=== PATIENT | female | born 1945 | race Caucasian/White ===

== ENCOUNTER → 2016-12-06 09:25 | Outpatient (CLI) | payer MEDICARE ==
[2010-02-23 08:29] VITALS: BMI 26.1
--- NOTE | ~2016-12-06 | EEG ---
PATIENT:INNA JOHANSEN DATE OF SERVICE: 12/06/16 MEDICAL RECORD: [id number] DATE OF : 41 LOCATION: [facility] ADMISSION DATE: 12/06/16 REFERRING PHYSICIAN: INTERPRETING PHYSICIAN: MARGO GUNDERSON MD DATE OF SERVICE: 12/07/2016 Referred as an outpatient by Dr. Fitzgerald. ELECTROENCEPHALOGRAM NUMBER: [id number] DATE OF EXAMINATION: 12/06/2016 at 10:45 a.m. TECHNICAL DATA: This electroencephalographic recording consists of approximately 20 minutes of data collection utilizing the international 10/20 system of electrode placement and both referential and non-referential montages. Sixteen channels of electrocerebral recording are accompanied by a 17th channel dedicated to the electrocardiographic rhythm and 2 channels of electromyographic recording. Recording is performed in the awake and drowsy states utilizing activation by hyperventilation and photic stimulation. ELECTROENCEPHALOGRAPHIC DATA: The awake state comprises approximately 70% of the recorded electrocerebral activity. Electromyographic artifact is prominent and rapid eye movements are seen. The posterior dominant background consists of a symmetric, semi-rhythmic, waxing and waning, 7-8 Hz alpha activity, which is suppressed by eye opening. The drowsy state comprises the remaining portion of the recorded electrocerebral activity. Electromyographic artifact is diminished and rapid eye movements are not seen. The posterior dominant background is relatively suppressed. No abnormal or focal slowing is identified. No epileptiform discharges are seen. Hyperventilation and photic stimulation induced no abnormal change in the recorded electrocerebral activity. INTERPRETATION: Normal (awake and drowsy). This is a normal electroencephalographic recording. TRANSINT:[id number] Voice Confirmation ID: [id number] DOCUMENT ID: [id number] MARGO GUNDERSON MD CC: [id number] DICTATION DATE: 12/07/16 0750 CUSTOMER CONTACT REPRESENTATIVE: 12/08/16 0011 DEP CLI 12/06/16 [id number] [place] [address]
== END | disposition home or self-care (01) ==
LOC: D.CN 12-05 10:00
DX: G72.3 Periodic paralysis (principal)

== ENCOUNTER → 2016-12-10 08:59 | Outpatient (CLI) | payer MEDICARE ==
[2010-02-23 08:29] VITALS: BMI 26.1
== END | disposition home or self-care (01) ==
LOC: D.MRI 08:59
DX: G72.3 Periodic paralysis (principal)

== ENCOUNTER 2017-02-21 10:28 | Outpatient (CLI) | payer MEDICARE ==
[~2017-02-21] VITALS: Ht 162.6 cm; Wt 74.5 kg
--- NOTE | ~2017-02-21 | OP ---
PATIENT NAME: INNA JOHANSEN MEDICAL RECORD: [id number] :41 LOCATION:[facility] ADMISSION DATE: SURGEON: KD CANADA MD OPERATION DATE: 02/21/17 PROCEDURES: 1. Left heart catheterization. 2. Selective coronary angiography. PROCEDURE IN DETAIL: After informed consent was obtained and after detailed explanation of risks, benefits, as well as alternative therapies, the patient elected to proceed with angiogram. The right radial area was prepped and draped in a normal sterile fashion. The right radial artery was cannulated via modified Seldinger technique with placement o f 5-Croatian sheath, 5-4 left and right Cesar, 5-4 pigtail catheter. All catheters exchanged through this sheath. The procedure was well-tolerated, and the patient's sheath was removed and TR band was placed. FINDINGS: Left ventriculography was performed in standard 30 degree POLLOCK view, normal wall motion, normal systolic function. CORONARY ANATOMY: 1. LEFT MAIN: The left main was free of disease. 2. LEFT ANTERIOR DESCENDING: The left anterior descending is free of disease as is the diagonal system. 3. CIRCUMFLEX: The circumflex is free of disease as is the marginal system. 4. RIGHT CORONARY ARTERY: This is a dominant right system and is free of disease. IMPRESSION: Normal left ventricular systolic function. Normal coronary anatomy. 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
--- NOTE | ~2017-02-21 | HEMODYNAMI ---
PATIENT:INNA JOHANSEN MEDICAL RECORD: [id number] : 41 LOCATION:[facility] ADMISSION DATE: 02/21/17 Generatedon:02/21/201714:42 Patient name: INNA JOHANSEN Patient #: [id number] SSN: DO B: 1945 Date of study: 02/21/2017 Page: Of Hemodynamic Procedure Report Patient Data Patient Demographics Procedure consent was obtained First Name: INNA Gender: Female Last Name: HAILY : 1945 [facility] Initial: JOANA Age: 71 year(s) Patient #: [id number] Race: Unknown Additional ID: [id number] Contact details Address: [address] [place] [address] State: [place] City: [place] Zip code: [address] Past Medical History Allergies Allergen Reaction Date Comments Reported Penicillins 02/21/2017 Other allergy 02/21/2017 NSAIDS, Citalopram Admission Admission Data Admission Date: 02/21/2017 Admission Time: 10:28 Height (in.): 64 BSA: 1.8 (m2) Height (cm.): 162.56 BMI: 28.15 (kg/m2) Weight (lbs.): 164 Weight (kg.): 74.39 Lab Results Lab Result Date: 02/21/2017 Lab Result Time: 0:00 Biochemistry Name Units Result Min Max Creatinine mg/dl 1.1 --(--*-)-- 0.6 1.3 CBC Name Units Result Min Max Hemoglobin g/dl 14.4 --(*---)-- 13.5 17.5 Procedure Procedure Types Cath Procedure Diagnostic Procedure C [facility] w/Coronaries Miscellaneous Procedures Moderate Sedation up to 15 minutes Procedure Description Procedure Date Procedure Date: 02/21/2017 Procedure Start Time: 14:29 Procedure End Time: 14:42 Procedure Staff Name Function Niall Rodgers MD Performing Physician Nuria Alberts RT Scrub Trisha Short RN Nurse Silverio Menchaca RN Nurse Sabine Bullard RT Monitor Jarrell Willis RN Grazing Aide Procedure Data Cath Procedure Fluoroscopy Diagnostic fluoroscopy Total fluoroscopy Time: 2.7 time: 2.7 min min Diagnostic fluoroscopy Total fluoroscopy dose: 338 dose: 338 mGy mGy Contrast Material Contrast Material Type Amount (ml) Isovue 300 36 Entry Location Entry Primary Successful Side Size Upsize Upsize Entry Closure Farias ccessful Closure Location (Fr) 1 (Fr) 2 (Fr) Remarks Device Remarks Radial Right 6 Fr Mechanical artery Short Compression Estimated blood loss: 5 ml Diagnostic catheters Device Type Used For End Catheter Placement Diagnostic Terumo 5Fr LV Angiography Palisade 110cm catheter Diagnostic Terumo 5Fr Left Coronary Palisade 110cm catheter Angiography Diagnostic Terumo 5Fr Right Coronary Palisade 110cm catheter Angiography Procedure Complications No complications Procedure Medications Medication Administration Route Dosage Lidocaine 2% added to field 20 Heparin Flush Bag added to field 2 bags (1000units/500ml NS) Oxygen NC 3 l/min 0.9% NaCl I.V. 100 ml/hr Radial Cocktail added to field 1 syringe (Verapomil 2mg/Nitro 400mcg/Heparin 1500units) Versed I.V. 1 mg Fentanyl I.V. 50 mcg Versed I.V. 0.5 mg Fentanyl I.V. 25 mcg Radial Cocktail I.A. 1 syringe (Verapomil 2mg/Nitro 400mcg/Heparin 1500units) Hemodynamics Rest BSA: 1.8 (m2) HGB: 14.4 (g/dl) O2 Consumption: Estimated: 155.7 (ml/min) O2 Cons umption indexed: Estimated:86.5 (ml/min/m) Heart Rate: 57 (bpm) Pressure Samples Time Site Value (mmHg) Purpose Heart Use Rate(bpm) 14:34 LV 109/13,12 EDP 71 14:34 AO 124/75(99) Pullback 67 14:34 LV 106/11,14 Pullback 67 Gradients Valve Time Site 1 Site 2 Mean SEP/DFP Peak To Heart Use (mmHg) (sec/min) Peak Rate (mmHg) (bpm) Aortic 14:34 LV AO 0 67 106/11,14 124/75(99) Calculations Valve P-P Mean Valve Index Valve Source Name Gradient Area Flow (cm2) Aortic 0 0 Snapshots Pre Cath Intra NCS Post Cath Vital Signs Time Heart Resp SPO2 NIBP (mmHg) Rhythm Pain Sedation Rate (ipm) (%) Status Level (bpm) 14:16:59 56 18 98 162/80(127) NSR 0 (11) 10(A) , No pain 14:21:19 57 17 99 162/85(106) NSR 0 (11) 10(A) , No pain 14:25:39 61 17 93 130/75(101) NSR 0 (11) 10(A) , No pain 14:29:49 62 17 98 136/77(119) NSR 0 (11) 9(A) , No pain 14:33:53 78 16 96 79/52(65) NSR 0 (11) 9(A) , No pain 14:38:48 65 12 94 110/67(90) NSR 0 (11) 10(A) , No pain Medications Time Medication Route Dose Verified Delivered Reason Notes Ef fectiveness by by 14:07:27 Lidocaine 2% added 20ml Trisha Trisha used for to vial Deja Deja procedure field RN RN 14:07:39 Heparin Flush added 2 bags Trisha Trisha used for Bag to Deja Deja procedure (1000units/500ml field RN RN NS) 14:17:44 Oxygen NC 3 l/min Trisha Trisha used for Deja Deja party plan demonstrator RN 14:17:57 0.9% NaCl I.V. 100 Trisha Trisha used for ml/hr Deja Deja party plan demonstrator RN 14:18:06 Radial Cocktail added 1 Trisha Trisha used for (Verapomil to syringe Deja Deja procedure 2mg/Nitro field RN RN 400mcg/Heparin 1500units) 14:24:24 Versed I.V. 1 mg Trisha Trisha for Deja Deja sedation RN RN 14:24:32 Fentanyl I.V. 50 mcg Trisha Trisha for Deja Deja sedation RN RN 14:29:21 Versed I.V. 0.5 mg Trisha Trisha for Deja Deja sedation RN RN 14:29:27 Fentanyl I.V. 25 mcg Trisha Trisha for Deja Deja sedation RN RN 14:29:35 Radial Cocktail I.A. 1 Niall Tierney used for (Verapomil syringe [facility] procedure 2mg/Nitro MD PEDERSEN 400mcg/Heparin 1500units) Procedure Log Time Note 14:02:31 Jarrell Willis RN sent for patient. Start room use. 14:02:32 Time tracking: Regular hours 14:02:35 Plan of Care:Hemodynamics will remain stable., Cardiac rhythm will remain stable., Comfort level will be maintained., Respiratory function will remain adequate., Patient/ family verbilizes understanding of procedure., Procedure tolerated without complication., Recovers from procedure without complications.. 14:04:21 Lab Result : Creatinine 1.1 mg/dl 14:04:21 Lab Result : Hemoglobin 14.4 g/dl 14:04:38 Patient Height : 162.56 cm 14:04:40 Patient Weight : 74.39 kg 14:07:27 Lidocaine 2% 20ml vial added to field was administered by Trisha Short RN; used for procedure; 14:07:39 Heparin Flush Bag (1000units/500ml NS) 2 bags added to field was administered by Trisha Short RN; used for procedure; 14:08:54 Patient received from Pre/Post Procedure Room to [facility] 2 Alert and oriented. Tansferred to table in Supine position. 14:08:55 Warm blankets applied, and dayanna hugger turned on for patient comfort. 14:08:55 Correct patient and procedure confirmed by team. 14:08:56 Signed procedure consent form obtained from patient. 14:08:57 ECG and BP/O2 sat monitors applied to patient. 14:08:58 Full Disclosure recording started 14:15:49 Vital chart was started 14:17:44 Oxygen 3 l/min NC was administered by Trisha Short RN; used for procedure; 14:17:57 0.9% NaCl 100 ml/hr I.V. was administered by Trisha Short RN; used for procedure; 14:18:06 Radial Cocktail (Verapomil 2mg/Nitro 400mcg/Heparin 1500units) 1 syringe added to field was administered by Trisha Short RN; used for procedure; 14:19:48 Baseline sample Acquired. 14:19:53 Rhythm: sinus bradycardia 14:20:04 H&P Date Dictated: 02/20/2017 Within 30 days and on chart., H&P Addendum completed by physician on day of procedure. (MUST COMPLETE FOR ALL OUTPATIENTS). 14:20:04 Pre-procedure instructions explained to patient. 14:20:05 Pre-op teaching completed and patient verbalized understanding. 14:20:06 Family in waiting room. 14:20:08 Patient NPO since Midnight. 14:20:15 Patient allergic to Penicillins 14:20:31 Patient allergic to Other allergyNSAIDS, Citalopram 14:20:33 Is the patient allergic to Iodine/contrast media? No. 14:20:38 Is patient on blood thinner?No 14:20:42 Patient diabetic? No. 14:20:44 Previous problem with sedation/anesthesia? No ? 14:20:46 Snore? No 14:20:47 Sleep apnea? No 14:20:47 Deviated septum? No 14:20:48 Opens mouth fully? Yes 14:20:49 Sticks out tongue? Yes 14:20:50 Airway obstruction? No ? 14:20:55 Dentures? No ? 14:21:02 Lab results completed and on chart. 14:21:05 Right Radial & Right Groin area was prepped with chlora-prep and draped in sterile fashion 14:21:06 Alarms reviewed by R. N. 14:21:06 Sharps counted by scrub and verified by R.N. 14:21:08 Use device set Radial Dx 14:21:09 Acist Syringe opened to sterile field. 14:21:09 Medline Cath Pack opened to sterile field. 14:21:10 Bag Decanter opened to sterile field. 14:21:11 Terumo 6Fr Slender Glidesheath opened to sterile field. 14:21:11 St Kareem 260cm J .035 wire opened to sterile field. 14:21:12 Acist Hand Control opened to sterile field. 14:21:12 Acist Manifold opened to sterile field. 14:21:13 Tegaderm 4 x 4 opened to sterile field. 14:21:14 MBrace Wrist Support opened to sterile field. 14:23:59 Final Timeout: patient, procedure, and site verified with staff and physician. All members of the team are in agreement. 14:24:01 Right Radial site verified by team. 14:24:04 Physical assessment completed. ASA score P 2 - A patient with mild systemic disease as per Niall Rodgers MD. 14:24:06 Sedation plan: IV Moderate Sedation Versed, Fentanyl 14:24:24 Versed 1 mg I.V. was administered by Trisha Short RN; for sedation; 14:24:32 Fentanyl 50 mcg I.V. was administered by Trisha Short RN; for sedation; 14:27:37 Zero performed for pressure channel P1 14:29:13 Procedure started. 14:29:20 Local anesthetic to right radial artery with Lidocaine 2% by Niall Rodgers MD.INITIAL ACCESS ONLY 14:29:21 Versed 0.5 mg I.V. was administered by Trisha Short RN; for sedation; 14::27 Fentanyl 25 mcg I.V. was administered by Trisha Short RN; for sedation; 14:29:35 Radial Cocktail (Verapomil 2mg/Nitro 400mcg/Heparin 1500units) 1 syringe I.A. was administered by Niall Rodgers MD; used for procedure; 14:30:50 A 6 Fr Short sheath was inserted into the Right Radial artery 14:31:03 A Diagnostic Terumo 5Fr Palisade 110cm catheter was advanced over the wire and used for LV Angiography. 14:32:32 Terumo ANGLE 260cm glide wire opened to sterile field. 14:33:13 Exch [place] wire advanced. 14:34:30 LV gram done using POLLOCK 14:34:33 EF : 55 % 14:34:34 LV hemodynamics recorded. 14:34:40 Injector settings: Ml/sec: 5, Volume: 15, 14:35:03 A Diagnostic Terumo 5Fr Palisade 110cm catheter was advanced over the wire and used for Left Coronary Angiography. 14:36:13 A Diagnostic Terumo 5Fr Palisade 110cm catheter was advanced over the wire and used for Right Coronary Angiography. 14:36:29 Catheter removed. 14:36:38 Terumo TR Band Standard opened to sterile field. 14:36:45 Sheath removed intact; hemostasis achieved with Mechanical Compression to the Right Radial artery. 14:36:47 Procedure ended.(Physican Out) 14:36:58 Fluoroscopy time 02.70 minutes. 14:37:02 Fluoroscopy dose: 338 mGy 14:37:02 Flurop Dose total: 338 14:37:05 Contrast amount:Isovue 300 36ml. 14:37:06 Sharps counted by scrub and verified by R.N. 14:37:08 TR band inflated with 12cc of air. 14:37:11 Insertion/operative site no bleeding no hematoma. 14:37:18 Post right radial artery:stable, clean and dry 14:37:19 Post Procedure Pulses reassessed and unchanged 14:37:22 Post-procedure physical assessment completed. ASA score P 2 - A patient with mild systemic disease as per Niall Rodgers MD. 14:37:24 Post procedure rhythm: unchanged. 14:37:28 Estimated blood loss: 5 ml 14:37:29 Post procedure instruction explained to patient.Patient verbalizes understanding. 14:37:29 Patient needs reinforcement of post procedure teaching. 14:37:42 Procedure type changed to Cath procedure, Diagnostic procedure, LHC, LHC w/Coronaries, Miscellaneous Procedures, Moderate Sedation up to 15 minutes 14:38:03 Procedure and supply charges have been captured, reviewed, submitted and are correct. 14:38:07 Procedure Complication : No complications 14:38:10 See physician's report for complete and final results. 14:41:50 Vital chart was stopped 14:41:51 Report given to Pre/Post Procedure Room. 14:41:54 Patient transfered to Pre/Post Procedure Room with Stretcher. 14:42:00 Procedure ended. 14:42:00 Full Disclosure recording stopped 14:42:04 End room use (Document Last) Device Usage Item Name Manufacture Quantity Catalog Hospital Part Current Minimal Lot# / Number Charge Number Stock Stock Serial# Code Acist Acist 1 86044 [id number] [id number] [id number] 20 Syringe [employer] Inc Medline Cardinal 1 [id number] [id number] 89241 125508 5 Cath Pack Health Bag Microtek 1 [id number] 27613 751407 5 DecDanotek [employer] Terumo 6Fr Terumo 1 [id number] 147247 340386 898572 [address] Kareem 1 357305 675541 456350 548293 30 260cm J .035 wire Acist Hand Acist 1 74710 794578 064114 704571 5 Control [employer] Inc Acist Acist 1 29134 804878 740902 922438 5 SPD Control Systems [employer] Inc Tegaderm 4 3M 1 [id number] 398028 787165 481059 5 x 4 MBrace Advanced 1 1400250-00 662144 28046 908832 5 Wrist Vascular Support Dynamics Diagnostic Terumo 1 91-8189 963271 478607 006801 5 Terumo 5Fr Palisade 110cm catheter Terumo Terumo 1 [id number] 824299 351156 764994 5 ANGLE 260cm glide wire Terumo TR Terumo 1 [id number] 262297 539008 079802 40 Band Standard Signature Audit [place] Stage Time Signature Unsigned Intra-Procedure 02/21/2017 Sabine 2:42:23 PM Counts RT(R) Signatures Monitor : Sabine Signature : Counts RT Date : Time : [id number] [place] [address]
[2017-02-21] MEDS ORDERED: FUROSEMIDE20 MG PO (10:42)
[2017-02-21] MEDS ORDERED: HYZAAR 50-12.51 TAB PO (10:42)
[2017-02-21] MEDS ORDERED: KLOR-CON 1010 MEQ PO (10:42)
[2017-02-21] MEDS ORDERED: ULTRAM50 MG PO (10:43)
[2017-02-21] MEDS ORDERED: VITAMIN D250000 UNIT PO (10:44)
[2017-02-21] MEDS ORDERED: NEXIUM40 MG (10:45)
[2017-02-21] MEDS ORDERED: SYMBICORT 80-10.2 GM INH (10:45)
[2017-02-21] MEDS ORDERED: COCONUT OIL (10:46)
[2017-02-21 10:53] VITALS: BP 148/81; Ht 162.6 cm; Wt 74.5 kg
[2017-02-21 11:03] LABS: BASOPHILS 0.2 % (0-2); EOSINOPHILS 2.3 % (0-7); HEMATOCRIT 42.4 % (36.0-48.0); HEMOGLOBIN 14.4 g/dL (12-16); LYMPHOCYTES 37.8 % (15-50); MCH 31.3 pg (26.0-34.0); MCV 92.2 fL (80.0-100.0); MEAN PLATELET VOLUME 10.5 fL (7.4-10.4); MONOCYTES 9.6 % (2-11); NEUTROPHILS 50.1 % (40-80); PLATELET COUNT 164 10x3/uL (130-400); RDW 12.7 % (11.5-14.5); WBC 4.8 10x3/uL (4.8-10.8)
[2017-02-21 11:17] LABS: ANION GAP 14.1 mmol/L (8-16); CALCIUM 9.2 mg/dL (8.5-10.1); CARBON DIOXIDE 22.8 mmol/L (21.0-32.0); CREATININE - SERUM 1.1 mg/dL (0.6-1.3); POTASSIUM - SERUM 3.9 mmol/L (3.5-5.1)
--- NOTE | 2017-02-21 15:05 | NUR ---
RIGHT WRIST WITH TR BAND INTACT, DENIES NEEDS
--- NOTE | 2017-02-21 15:30 | NUR ---
RESTING WITH EYES CLOSED, RIGHT WRIST WITH TR BAND INTACT
--- NOTE | 2017-02-21 17:02 | NUR ---
IV D'C WITH CATH TIP INTACT, TR BAND OFF WITH BAND AID APPLIED, WRITTEN AND VERBAL INSTRUCTIONS GIVEN AND UNDERSTOOD. D'C HOME
== END 2017-02-21 17:00 | disposition home or self-care (01) ==
LOC: D.CATH 10:28
PROVIDERS: Internal Medicine Interventional Cardiology
DX: I20.9 Angina pectoris, unspecified (principal); E78.5 Hyperlipidemia, unspecified; R06.00 Dyspnea, unspecified; R07.9 Chest pain, unspecified; I10 Essential (primary) hypertension; Z01.812 Encounter for preprocedural laboratory examination

== ENCOUNTER → 2018-05-26 16:16 | Outpatient (CLI) | payer MEDICARE ==
[2017-02-21 10:53] VITALS: BMI 28.2
[~2018-05-26 16:16] MED LIST: COCONUT OIL; FUROSEMIDE20 MG PO; HYZAAR 50-12.51 TAB PO; KLOR-CON 1010 MEQ PO; NEXIUM40 MG; SYMBICORT 80-10.2 GM INH; ULTRAM50 MG PO; VITAMIN D250000 UNIT PO
== END | disposition home or self-care (01) ==
LOC: D.MAMMO 13:00
DX: Z12.31 Encounter for screening mammogram for malignant neoplasm of breast (principal)

== ENCOUNTER → 2018-07-03 21:10 | Outpatient (CLI) | payer MEDICARE ==
[2017-02-21 10:53] VITALS: BMI 28.2
== END | disposition home or self-care (01) ==
LOC: D.MAMMO 13:30
DX: R92.8 Other abnormal and inconclusive findings on diagnostic imaging of breast (principal)

== ENCOUNTER 2020-06-03 13:15 | Outpatient (CLI) | payer MEDICARE ==
[2017-02-21 10:53] VITALS: BMI 28.2
== END 2020-06-03 13:46 | disposition home or self-care (01) ==
LOC: D.MAMMO 13:15
PROVIDERS: ATTEND Family Medicine
DX: I25.10 Atherosclerotic heart disease of native coronary artery without angina pectoris (principal)